=== PATIENT | female | born 1990 | race Caucasian/White ===

== ENCOUNTER 2017-10-18 08:21 | Inpatient (IN) | payer OTHER ==
[~2017-10-18] VITALS: Ht 157.5 cm; Wt 65.8 kg
[2017-10-18 08:56] VITALS: BP 123/75
[2017-10-18] MEDS ORDERED: PRENATABS RX T1 EACH PO (08:59)
[2017-10-18] MEDS ORDERED: PREVACID15 M1 PO (09:01)
--- NOTE | 2017-10-18 09:23 | History & Physical Pre-Op ---
General Information and HPI History of Present Illness: 27 YO LMP 01/13/17 EDC 10/30/17 AT [id number] ADMITTED WITH PROM THIS AM PRESENTS FOR REPEAT C SECTION. CARE COMPLETE AND REMARKABLE FOR LATE TRANSFER ANMD ELEVATED 1HR GCT WITH NORMAL 3 HR GTT. PT REFUSES WENDY AND . Allergies/Medications Allergies: Coded Allergies: cyclobenzaprine (From FLEXERIL) (HIVES 10/18/17) Home Med list Lansoprazole (Prevacid) 15 MG CAPSULE.DR 1 CAP PO DAILY ACID REFLUX (Reported ) Vit #76/Iron,Carb/FA (Prenatabs Rx Tablet) 29 MG IRON-1 MG TABLET 1 TAB PO DAILY (Reported) Past History Surgical History Pertinent Surgical History: Past Family/Social History Psychosocial History Smoking Status: Current Everyday Smoker Review of Systems Review of Systems Constitutional: Reports: no symptoms. EENTM: Reports: no symptoms. Cardiovascular: Reports: no symptoms. Respiratory: Reports: no symptoms. GI: Reports: no symptoms. Genitourinary: Reports: no symptoms. Musculoskeletal: Reports: no symptoms. Skin: Reports: no symptoms. Neurological/Psychological: Reports: no symptoms. Hematologic/Endocrine: Reports: no symptoms. Immunologic/Allergic: Reports: no symptoms. All Other Systems: Reviewed and Negative Exam & Diagnostic Data Last 24 Hrs of Vital Signs/I&O Vital Signs Date Time Temp Pulse Resp B/P B/P Pulse O2 O2 Flow FiO2 Mean Ox Delivery Rate 10/18 0856 123/75 Intake & Output 10/18 1600 10/18 0800 10/18 0000 Intake Total Output Total Balance Patient 145 lb Weight Physical Exam: HEENT: NCAT CHEST: CTA CV: NL S1S2 CX: 1CM/90/+1 EXT: NO C/C/E NEURO: NONFOCAL Last 24 Hrs of Labs/Mello: Laboratory Tests 10/18/17 0909: Hemoglobin A1c Pending, CBC w Diff Pending, WBC Pending, RBC Pending, Hgb Pending, Hct Pending, MCV Pending, MCH Pending, MCHC Pending, RDW Pending, Plt Count Pending, MPV Pending, RPR Titer/FTA Pending 10/18/17 0838: Membrane Rupture POSITIVE Microbiology 10/18 0855 URINE ROUT: Urine Culture - COLB Assessment/Plan Assessment/Plan: PROM 38 WK PREVIOUS C SECTION REFUSES WENDY/ REPEAT C SECTION As Ranked By This Provider Problem List: 1. Previous section
[2017-10-18 09:27] LABS: ABSOLUTE BASOPHIL COUNT 0.1 /CUMM (0.0-0.2); ABSOLUTE EOSINOPHIL COUNT 0.3 /CUMM (0.0-0.7); ABSOLUTE GRANULOCYTE CT 10.3 /CUMM (1.4-6.5); ABSOLUTE LYMPH COUNT 2.8 /CUMM (1.2-3.4); ABSOLUTE MONOCYTE COUNT 0.6 /CUMM (0.10-0.60); BASOPHIL % 0.9 % (0.0-2.0); GRANULOCYTE % 72.7 % (42.2-75.2); HEMATOCRIT 32.9 % (37-47); MEAN CORPUSCULAR HGB 31.1 PG (27.0-31.0); MEAN CORPUSCULAR VOLUME 91.5 FL (81.0-99.0); MEAN PLATELET VOLUME 8.7 FL (7.4-10.4); PLATELET COUNT 380 /CUMM (130-400); RBC DISTRIBUTION WIDTH 12.8 % (11.5-14.5); RED BLOOD CELL CT 3.59 /CUMM (4.20-5.40); WHITE BLOOD CELL COUNT 14.2 /CUMM (4.8-10.8)
[2017-10-19 08:02] LABS: ABSOLUTE BASOPHIL COUNT 0.1 /CUMM (0.0-0.2); BASOPHIL % 0.4 % (0.0-2.0)
[2017-10-19 08:38] LABS: ABSOLUTE EOSINOPHIL COUNT 0.4 /CUMM (0.0-0.7); ABSOLUTE GRANULOCYTE CT 11.5 /CUMM (1.4-6.5); ABSOLUTE LYMPH COUNT 4.2 /CUMM (1.2-3.4); EOSINOPHIL % 2.1 % (0-5); GRANULOCYTE % 67.3 % (42.2-75.2); MEAN CORPUSCULAR HGB 31.3 PG (27.0-31.0); MEAN CORPUSCULAR HGB CONC 33.7 G/DL (33.0-37.0); PLATELET COUNT 324 /CUMM (130-400); RBC DISTRIBUTION WIDTH 13.1 % (11.5-14.5); RED BLOOD CELL CT 2.98 /CUMM (4.20-5.40); WHITE BLOOD CELL COUNT 17.1 /CUMM (4.8-10.8)
[2017-10-19 08:41] LABS: HEMATOCRIT 27.7 % (37-47)
--- NOTE | 2017-10-19 11:06 | Operative Report ---
Operative/Inv Procedure Report Surgery Date: 10/18/17 Name of Procedure: Repeat section Pre-Operative Diagnosis: Premature rupture of membranes Previous Post-Operative Diagnosis: Same Estimated Blood Loss: 800 mL Surgeon/Plumbing Assembler: Melanie Garcia MD,Manan Jensen M.D. Anesthesia: spinal Operative/Procedure Note Note: The patient was brought to the operating room placed on the OR table in the sitting position where she underwent spinal anesthetic without complication. She was repositioned into dorsal supine with a block under her right. A Carrasco catheter was inserted and drained clear yellow urine. The abdomen was prepped and draped in usual sterile fashion. The skin was tested and a Pfannenstiel skin incision was made over the old scar and taken down to the layer of the fascia. The fascia was nicked in the midline and extended bilaterally. The underlying rectus muscles are and the peritoneal cavity was entered bluntly. A [place] bladder blade was inserted to protect the bladder from the operative field. A transverse uterine incision was made with the scalpel and a liveborn female infant was delivered atraumatically and handed off to the waiting log check scaler. The placenta was then manually removed intact with three- vessel cord. The uterus was exteriorized and wiped clean with a wet lap sponge. The uterine incision was closed in 2 layers of 0 Polysorb, the second imbricating the first. The abdomen and pelvis were copiously irrigated and the uterus is into the abdominal cavity. Suture line was once again visualized and noted to be hemostatic. Rectus muscles were reapproximated with 0 Polysorb. The fascia was closed with 0 Polysorb in a running nonlocking fashion. The skin was closed with subcuticular suture of 4-0 Biosyn after the subcutaneous tissues were coagulated with the Bovie. Dry sterile dressing was applied to the wound patient was sent to recovery in good condition. All needle, sponge, and inspected counts were correct at the end of the procedure 4.
--- NOTE | 2017-10-19 11:07 | PN- Post Delivery/GYN ---
Subjective Subjective: No complaints Review of Systems: Negative Objective Last 24 Hrs of Vital Signs/I&O Vital signs stable Physical Exam: Incision clean dry and intact Fundus firm Extremities nontender Assessment/Plan Assessment/Plan Operative day #1 status post repeat section Plan: DC Carrasco, advance diet, increase activity Problem List: 1. Previous section
[2017-10-20] MEDS ORDERED: PERCOCET 5-3251 EACH PO (08:21)
[2017-10-20] MEDS ORDERED: DOCUSATE SODIU100 M3 PO (08:21)
[2017-10-20] MEDS ORDERED: IBUPROFEN800 M1 PO (08:21)
[2017-10-20] MEDS ORDERED: SIMETHICONE80 M1 PO (08:21)
== END 2017-10-20 14:35 | DRG 766 ==
LOC: CBCO 08:21 → GNO 08:48 → LCXP 10-21 13:00
PROVIDERS: Obstetrics & Gynecology
PROC: 10D00Z1 Extraction of Products of Conception, Low, Open Approach (ICD-10-PCS; principal; 2017-10-18)
DX: O34.211 Maternal care for low transverse scar from previous cesarean delivery (principal); N85.8 Other specified noninflammatory disorders of uterus; O42.92 Full-term premature rupture of membranes, unspecified as to length of time between rupture and onset of labor; O99.334 Smoking (tobacco) complicating childbirth; Z3A.38 38 weeks gestation of pregnancy; Z37.0 Single live birth
CPT/HCPCS: GNOS; 36415; 81003; 84112; 87086; J0131; J0690; J1885; J2790; J7120